=== PATIENT | male | born 1970 | race Caucasian/White ===

== ENCOUNTER 2018-09-19 06:16 | Emergency (ER) | payer SELFPAY ==
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
[2018-09-19] MEDS ORDERED: HYDROmorphone 1 MG/ML Syringe IVPUSH ONE (08:25)
[2018-09-19] MEDS ORDERED: Lactated Ringers 1,000 ML IV SCH (08:30)
--- NOTE | 2018-09-19 08:41 | CT ---
CT cervical spine Technique: Multiple axial sections were obtained from above C1 inferiorly to the bottom of T1. Reconstructed sagittal and coronal images were reviewed. Findings: Moderate disc space narrowing at C5-C6. Disc space narrowing noted at C6-C7. Anterior osteophytes are seen most prominent at C5-C6 and C6-C7. Vertebral body heights are maintained. Slight posterior osteophytes noted at C6-C7. No bony central or bony neural foraminal stenosis is seen. No fracture is seen. No acute subluxation is identified. Impression: 1. Degenerative change. Nothing acute is appreciated on CT study of the cervical spine. Diagnostic code #2 I agree with preliminary report from [facility], finalized on 09/19/18, 8:18 AM Central Time
--- NOTE | 2018-09-19 08:41 | CR ---
Right tibia and fibula: Two views of the right tibia and fibula were obtained. Comparison: No prior study. Osteophytes are noted off the lateral knee. No acute fracture or other bony abnormality is identified. Impression: 1. Slight degenerative change within the knee. 2. No acute abnormality is appreciated on right tibia and fibula study. Diagnostic code #2
--- NOTE | 2018-09-19 08:41 | CR ---
Left forearm: Two views of the left forearm were obtained. Comparison: No prior forearm study. Mildly comminuted and displaced fractures are identified near the junction of the mid one third and distal one third diaphysis. Soft tissue swelling is noted. No additional fracture or other bony abnormality is seen. Impression: 1. Forearm fracture as noted above. Soft tissue swelling. Diagnostic code #3
--- NOTE | 2018-09-19 08:41 | CT ---
CT chest Technique: Multiple axial sections through the chest were obtained. Intravenous contrast was utilized. Details are diminished as patient's arms are down. Comparison: No prior chest imaging. Findings: Calcification is seen within the right lobe of thyroid gland which is incidental. Mediastinum and hilar regions show no adenopathy or mass. No pericardial thickening is seen. Minimal coronary artery calcification is seen. Patchy areas of increased density scattered throughout the left lung most likely representing pulmonary contusion. Right lung is clear. No pneumothorax is appreciated. Deformity is noted of the left second rib compatible with old healed injury. Lesser deformity is seen within the third rib compatible with old healed injury. Mild deformity noted of the fourth rib which is also compatible with old healed injury. Fractures are seen within the lateral sixth and seventh ribs which are nondisplaced and felt to be acute. No other rib abnormality is appreciated. Mild degenerative change scattered within the spine. No sternal fracture is seen. No compression deformities are seen within the spine. No abnormal subluxation is seen within the spine. Impression: 1. Patchy increased density throughout the left chest most likely representing pulmonary contusion. 2. Two nondisplaced acute rib fractures as well as deformity from old healed left upper rib fractures. 3. No pleural effusions or pneumothorax is seen. 4. Other incidental findings as noted above. Diagnostic code #3 I agree with preliminary report from [facility], finalized on 09/19/18, 8:[address] abdomen and pelvis Technique: Multiple axial sections were obtained from above the dome of the diaphragm inferiorly through the pubic symphysis. Intravenous contrast was utilized. No oral contrast has been given. Artifact is noted within the upper abdomen due to the patient's arms along his side. Comparison: No prior abdominal imaging. Findings: Liver shows no discrete abnormality. Spleen appears within normal limits. Adrenal glands show no nodule. Gallbladder contains no calcified gallstones. Kidneys show symmetric contrast enhancement. Small low density findings seen within the mid right kidney believed to represent minimal cyst. Very small cortical cyst is also noted off the inferior right kidney. Pancreas appears normal. Aorta shows no aneurysm. No retroperitoneal adenopathy or mesenteric abnormalities are seen. No pelvic mass or adenopathy is seen. No free fluid or inflammatory change is seen within the abdomen or within the pelvis. Delayed images show contrast within the ureters which show no dilatation. Contrast also noted within the bladder. No contrast extravasation is seen. Bone window settings were reviewed which show no acute osseous abnormality. Impression: 1. Incidental findings. Nothing acute is identified on CT study of the abdomen and pelvis. Diagnostic code #2 I agree with preliminary report from [facility], finalized on 09/19/18, 8:41 AM Central Time
--- NOTE | 2018-09-19 08:41 | CT ---
Head CT Technique: Multiple axial sections through the brain were obtained. Intravenous contrast was not utilized. Comparison: No prior intracranial imaging. Findings: Ventricles along with basal cisterns and sulci over the convexities are within normal limits for the patient's age. No abnormal parenchymal densities are seen. No evidence of intracranial hemorrhage. No midline shift or mass effect is seen. Bone window settings were reviewed which show no acute calvarial abnormality. Visualized sinuses are clear. Impression: 1. Nothing acute is appreciated on noncontrast head CT exam. Diagnostic code #1 I agree with preliminary report from [facility], finalized on 09/19/18, 8:43 AM Central Time
== END 2018-09-19 08:50 ==
LOC: JD.ED 06:16
DX: S22.32XA Fracture of one rib, left side, initial encounter for closed fracture (principal); S52.92XA Unspecified fracture of left forearm, initial encounter for closed fracture; S27.329A Contusion of lung, unspecified, initial encounter; Z87.891 Personal history of nicotine dependence; V53.0XXA Driver of pick-up truck or van injured in collision with car, pick-up truck or van in nontraffic accident, initial encounter
CPT/HCPCS: 36415; 70450; 71260; 72125; 73090; 73590; 74177; 80053; 85007; 85027; 85610; 85730; 86850; 86900; 86901; 96374; 99285; G0480; J1170; J7120; 99284